=== PATIENT | male | born 1995 | race Caucasian/White ===

== ENCOUNTER → 2017-07-05 15:00 | Emergency (ER) | payer OTHER ==
[2017-07-05 15:15] VITALS: BP 138/67
--- NOTE | 2017-07-05 17:23 | ED ---
Back Pain - HPI Summary HPI Summary: 22M presents with worsening back pain for 5 weeks. He states five weeks ago he got diagnosed with shingles and said that he had a sharp pain in the area. He states he was given vicodin but did not need to take it. He states since then his pain has traveled from the thoracic region of his back to across his lower back. 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 He denies any fever. He states he gets pain down his legs along with occasionally numbness or tingling. He denies any loss of bowel or bladder or saddle anaesthesia. He was never on an antiviral as his shingle was diagnosed late. He was seen at another hospital near home twice and had CT of his chest and abdomen which were normal although no mention of the back was in either report which occurred 5 days ago. He was worked up in the ER there for possible gallbladder disease and has normal gallbladder. He denies any dysuria, hematuria, frequency or urgency. He saw his chiropractor who recommended an MRI. He comes to the ED for an MRI. - History of Current Complaint Chief Complaint: EDBackInjuryPain Stated Complaint: BACK PAIN Time Seen by Provider: 07/05/17 16:37 Pain Intensity: 6 - Allergies/Home Medications Allergies/Adverse Reactions: Allergies Allergy/AdvReac Type Severity Reaction Status Date / Time Codeine Allergy Intermediate Rash Verified 05/31/14 23:20 Amoxicillin Allergy Unknown Verified 11/07/16 13:23 Reaction Details PMH/Surg Hx/FS Hx/Imm Hx Endocrine/Hematology History: Denies: Hx Anticoagulant Therapy Cardiovascular History: Denies: Hx Hypertension - Immunization History Date of Tetanus Vaccine: up to date per pt Infectious Disease History: Denies: Traveled Outside the [place] in Last 30 Days - Family History Known Family History: Positive: Hypertension - Social History Alcohol Use: None Substance Use Type: Reports: None Smoking Status (MU): Never Smoked Tobacco Review of Systems Negative: Fever Negative: Chest Pain Negative: Shortness Of Breath Positive: Myalgia - back pain Positive: Rash All Other Systems Reviewed And Are Negative: Yes Physical Exam Triage Information Reviewed: Yes Vital Signs On Initial Exam: Initial Vitals Temp Pulse Resp BP Pulse Ox 98.5 F 83 16 138/67 98 07/05/17 15:11 07/05/17 15:11 07/05/17 15:11 07/05/17 15:11 07/05/17 15:11 Vital Signs Reviewed: Yes Appearance: Positive: Well-Appearing Skin: Positive: Warm, Dry Head/Face: Positive: Normal Head/Face Inspection Eyes: Positive: Normal, Conjunctiva Clear Respiratory/Lung Sounds: Positive: Clear to Auscultation, Breath Sounds Present Cardiovascular: Positive: Normal, RRR Abdomen Description: Negative: CVA Tenderness (R), CVA Tenderness (L) Musculoskeletal: Positive: Strength/ROM Intact - back, upper and lower extremties, Other - tender across thoracic and lumbar back, no shingles rash seen on exam, no midline tenderness, neg SLR, good pulse Neurological: Positive: Sensory/Motor Intact, Reflexes Intact - biceps, patella - Clementina Coma Scale Coma Scale Total: 15 Diagnostics - Vital Signs Vital Signs Temp Pulse Resp BP Pulse Ox 07/05/17 15:11 98.5 F 83 16 138/67 98 - Laboratory Lab Statement: Any lab studies that have been ordered have been reviewed, and results considered in the medical decision making process. Back Pain Course/Dx - Course Course Of Treatment: 22M presents with worsening back pain for 5 weeks. He states five weeks ago he got diagnosed with shingles and said that he had a sharp pain in the area. He states he was given vicodin but did not need to take it. He states since then his pain has traveled from the thoracic region of his back to across his lower back. 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 He denies any fever. He states he gets pain down his legs along with occasionally numbness or tingling. He denies any loss of bowel or bladder or saddle anaesthesia. He was never on an antiviral as his shingle was diagnosed late. He was seen at another hospital near home twice and had CT of his chest and abdomen which were normal although no mention of the back was in either report which occurred 5 days ago. He was worked up in the ER there for possible gallbladder disease and has normal gallbladder. He denies any dysuria, hematuria, frequency or urgency. He saw his chiropractor who recommended an MRI. He comes to the ED for an MRI. on exam tenderness across back, no midline tenderness, neg SLR, good strength in upper and lower extremities, reflexes intact. due to just having imaging of chest and abdomen will not repeat CT as would have likely commented if something abnormal and no trauma so do not suspect fracture. at this time MRI is not clinically needed emergently. patient has no primary so gave referrals to get one or specialist to set up outpatient MRI. discussed with dr dowell to make sure but agrees that no reason today for MRI but should by set up by someone outpatient. 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 explained all this to patient. patient understands and agrees with plan. - Diagnoses Differential Diagnosis/HQI/PQRI: Positive: Herniated Disc, Strain, Sprain Provider Diagnoses: Back pain Discharge - Discharge Plan Condition: Good Disposition: HOME Prescriptions: Cyclobenzaprine TAB* [Flexeril 10 MG TAB*] 10 mg PO TID PRN #21 tab PRN Reason: Pain Gabapentin CAP(*) [Neurontin 300 CAP(*)] 300 mg PO TID PRN #21 cap PRN Reason: Pain traMADol TAB* [Ultram*] 25 mg PO Q6HR PRN #16 tab MDD 4 PRN Reason: Pain Patient Education Materials: Back Pain (ED) Referrals: [facility] [place] [facility] REFERRAL [Outside] Gibran Hudson MD [Medical Doctor] - Bashir Oh MD [Medical Doctor] - Additional Instructions: Follow up with either primary, neurosurgery or ortho that specializes in back to further care of back pain Take muscle relaxers three times a day for 3 days Take gabapentin three times a day for neuropathy Use ibuprofen or Tylenol for pain every 6 hours, use narcotic for break through pain ice/heat area, move as much as possible Return to ED if develop any new or worsening symptoms
== END | disposition home or self-care (01) ==
LOC: ED 15:00
DX: M54.9 Dorsalgia, unspecified (principal); R21 Rash and other nonspecific skin eruption
CPT/HCPCS: 99281

== ENCOUNTER 2018-05-13 19:57 | Emergency (ER) | payer OTHER ==
[2018-05-13 20:15] VITALS: BP 119/79
[2018-05-13] MEDS ORDERED: NS 0.9% 1000 ML* 1,000 ML IV ONE (20:22)
[2018-05-13] MEDS ORDERED: Metoclopramide IV* 5 MG/ML 2 ML VIAL IV SLOW PU ONE (20:22)
--- NOTE | 2018-05-13 21:39 | UC ---
Farrukh Ta Stephanie, scribed for Mat Alvarenga MD on 05/13/18 at 2027 . General HPI - HPI Summary HPI Summary: The pt is a 22 y/o M presenting to with c/o N/V/D since 01:00. Symptoms include some blood in the stool. He denies abd pain. HE reports he has vomited about 20 times since onset. The pt states he ate sushi last evening. - History of Current Complaint Chief Complaint: UCGeneralIllness Stated Complaint: VOMITING Time Seen by Provider: 05/13/18 20:09 Hx Obtained From: Patient Onset/Duration: Sudden Onset, Lasting Hours, Still Present Timing: Constant Current Severity: Moderate Pain Intensity: 5 Associated Signs & Symptoms: Positive: Diarrhea, Nausea, Vomiting, Other - blood in stool - Allergy/Home Medications Allergies/Adverse Reactions: Allergies Allergy/AdvReac Type Severity Reaction Status Date / Time amoxicillin Allergy Vomiting Verified 05/13/18 20:16 PMH/Surg Hx/FS Hx/Imm Hx Previously Healthy: No - The pt denies past medical hx. Cardiovascular History: Other Other Cardiovascular History: Negative: HTN Other History Of: Negative For: Anticoagulant Therapy - Surgical History Surgical History: None - Family History Known Family History: Positive: Hypertension - Social History Occupation: Student Lives: Dormitory/Roommates Alcohol Use: Occasionally Substance Use Type: Marijuana Substance Use Comment - Amount & Last Used: 3-4 times a week Smoking Status (MU): Never Smoked Tobacco Have You Smoked in the Last Year: No Review of Systems Constitutional: Negative Skin: Negative Eyes: Negative ENT: Negative Respiratory: Negative Cardiovascular: Negative Gastrointestinal: Vomiting, Diarrhea, Nausea Genitourinary: Negative Motor: Negative Neurovascular: Negative Musculoskeletal: Negative Neurological: Negative Psychological: Negative All Other Systems Reviewed And Are Negative: Yes Physical Exam - Summary Physical Exam Summary: VITAL SIGNS: Reviewed. GENERAL: Patient is a well-developed and nourished MALE who is lying comfortable in the stretcher. Patient is not in any acute respiratory distress. HEAD AND FACE: Normocephalic EYES: PERRLA, EOMI x 2. EARS: Hearing grossly intact. MOUTH: Oropharynx within normal limits. NECK: Supple, trachea is midline, no adenopathy, no JVD, no carotid bruit. CHEST: Symmetric, no tenderness at palpation LUNGS: Clear to auscultation bilaterally. No wheezing or crackles. CVS: Regular rate and rhythm, S1 and S2 present, no murmurs or gallops appreciated. ABDOMEN: Soft, slight epigastric tenderness. Bowel sounds are normal. No abdominal abnormal pulsations. EXTREMITIES: Full ROM in all major joints, no edema, no cyanosis or clubbing. NEURO: Alert and oriented x 3. No acute neurological deficits. Speech is normal and follows commands. SKIN: Dry and warm Triage Information Reviewed: Yes Vital Signs: Initial Vital Signs Temp 101 F 05/13/18 20:09 Pulse 102 05/13/18 20:09 Resp 16 05/13/18 20:09 BP 119/79 05/13/18 20:09 Pulse Ox 99 05/13/18 20:09 Vital Signs Reviewed: Yes Course/Dx - Course Course Of Treatment: 22-year-old male presents to the urgent care with patient complaining of nausea vomiting and diarrhea. In the urgent care course the patient was given IV fluids for hydration and Reglan for the nausea and vomiting. Fecal leukocytes and stool cultures will be sent to the lab. After hydration and Reglan the patient is feeling better. He is able to tolerate by mouth. The patient was discharged home with follow-up with primary care physician. Patient as he was medically stable alert and oriented 3. - Differential Dx - Multi-Symptom Provider Diagnoses: Nausea vomiting and diarrhea Discharge - Sign-Out/Discharge Documenting (check all that apply): Discharge/Admit/Transfer - Discharge Plan Condition: Stable Disposition: HOME Prescriptions: Metoclopramide TAB* [Reglan TAB*] 10 mg PO Q8H PRN #10 tab PRN Reason: Vomiting Patient Education Materials: Acute Nausea and Vomiting (ED), Acute Diarrhea (ED ) Referrals: Jill Orellana MD [Primary Care Provider] - - Billing Disposition and Condition Condition: STABLE Disposition: Home The documentation as recorded by the Farrukh ross Stephanie accurately reflects the service I personally performed and the decisions made by , Mat Alvarenga MD.
--- NOTE | 2018-05-15 21:23 | UC ---
- Progress Note Progress Note: 05/15/2018 Pt Dx w/ acute diarrhea and vomiting negative Shiga toxin 1&2 Fecal lactoferritin Positive probably intestinal inflammation Stool Occult blood Positive. Await Stool culture result Mitali Santos PA-C Discharge - Sign-Out/Discharge Documenting (check all that apply): Discharge/Admit/Transfer - D/c home - Discharge Plan Condition: Stable Disposition: HOME Prescriptions: Metoclopramide TAB* [Reglan TAB*] 10 mg PO Q8H PRN #10 tab PRN Reason: Vomiting Patient Education Materials: Acute Nausea and Vomiting (ED), Acute Diarrhea (ED ) Referrals: Jill Orellana MD [Primary Care Provider] - - Billing Disposition and Condition Condition: STABLE Disposition: Home
== END 2018-05-13 21:48 | disposition home or self-care (01) ==
LOC: UCEAST 19:57
DX: R11.2 Nausea with vomiting, unspecified (principal); R19.7 Diarrhea, unspecified; Z88.0 Allergy status to penicillin; Z82.49 Family history of ischemic heart disease and other diseases of the circulatory system
CPT/HCPCS: 96360; 96374; 99212; G0463; J2765